=== PATIENT | female | born 1970 | race Asian ===

== ENCOUNTER 2016-12-13 05:41 | Day surgery (SDC) | payer OTHER ==
[2016-12-13] MEDS ORDERED: ACETAMINOPHEN 1,000 MG/100 ML 100 ML IV ONE ×2 (06:37→07:30)
[2016-12-13] MEDS ORDERED: CELECOXIB 100 MG CAPSULE PO ONE (06:38)
[2016-12-13] MEDS ORDERED: ceFAZolin 2 GM/50 ML 50 ML IV ONE (06:38)
[2016-12-13 06:49] LABS: HCG UR QUAL NEGATIVE
[2016-12-13] MEDS ORDERED: LACTATED RINGERS 1,000 ML IV ONE ×2 (07:15→10:00)
[2016-12-13] MEDS ORDERED: ROPIVACAINE 0.5% PF 20 ML AMPULE EP ONE (07:30)
[2016-12-13] MEDS ORDERED: DEXAMETHASONE 4 MG/ML VIAL IVP ONE (07:30)
[2016-12-13] MEDS ORDERED: ONDANSETRON 4 MG/2 ML VIAL IVP ONE (07:30)
[2016-12-13] MEDS ORDERED: LIDOCAINE-MPF 2% 5 ML VIAL IM ONE (07:30)
[2016-12-13] MEDS ORDERED: ROCURONIUM 50 MG/5 ML VIAL IVP ONE (07:30)
[2016-12-13] MEDS ORDERED: PROPOFOL 200 MG/20 ML VIAL IVP ONE (07:30)
[2016-12-13] MEDS ORDERED: MIDAZOLAM 2 MG/2 ML VIAL IVP ONE (07:30)
[2016-12-13] MEDS ORDERED: ePHEDrine 50 MG/ML AMP IVP ONE (07:30)
[2016-12-13] MEDS ORDERED: fentaNYL 100 MCG/2 ML VIAL IVP ONE (07:30)
[2016-12-13] MEDS ORDERED: BUPIVACAINE 0.5% PF 30 ML VIAL INFIL ONE ×2 (08:56)
--- NOTE | 2016-12-13 12:51 | XRAY Report ---
LEFT HUMERUS: 12/13/2016 HISTORY: Postoperative check. COMPARISON: None. FINDINGS: Two views of the left shoulder show subcutaneous air and soft tissue swelling superior to the AC articulation. The glenohumeral and acromioclavicular joints appear anatomically aligned. The distal tip of the acromion is not well seen and the included portions of the left lung are intact. No radiopaque foreign body identified. IMPRESSION: SUBCUTANEOUS AIR AND SOFT TISSUE SWELLING LEFT SHOULDER CONSISTENT WITH RECENT SURGERY. :9 JOB #: [id number] EXT JOB #:[id number]
[2016-12-13 13:17] VITALS: BP 132/65
--- NOTE | 2016-12-16 08:52 | OPERATIVE REPORT ---
DATE OF SURGERY: 12/13/2016 00:00:00 [facility] PREOPERATIVE DIAGNOSES 1. Left shoulder superior labrum anterior to posterior tear. 2. Left shoulder long head biceps tendinopathy. 3. Left shoulder subacromial bursitis. 4. Left shoulder acromioclavicular osteoarthritis. POSTOPERATIVE DIAGNOSES 1. Left shoulder superior labrum anterior to posterior tear. 2. Left shoulder long head biceps tendinopathy. 3. Left shoulder subacromial bursitis. 4. Left shoulder acromioclavicular osteoarthritis. NAME OF PROCEDURE 1. Left shoulder arthroscopy with superior labrum anterior to posterior debridement. 2. Left shoulder arthroscopic subacromial decompression. 3. Left shoulder open biceps tenodesis. 4. Left shoulder open distal clavicle excision. PRIMARY SURGEON: Brandee Webb MD SORTING COWS WORKER SURGEON: Louis Alcocer MD ANESTHESIA/PROVIDER: Darryl James CRNA CIRCULATING NURSE: Tawnya Hernandez RN, CNOR LINE DRIVER 1. Dolly Abraham, CLIENT MANAGER 2. Amparo Casey RN, BSN ANESTHESIA: General via endotracheal tube. IV FLUIDS: 800 mL lactated Ringer's. ESTIMATED BLOOD LOSS: 100 mL. ANTIBIOTICS: 2 grams Ancef IV. TOURNIQUET: None. IMPLANTS: Arthrex 6.25 x 15 mm BioTenodesis screw. SPECIMENS: None. COMPLICATIONS: None. INDICATIONS: This is a 46-year-old female with shoulder pain that began approximately 1 year ago. The patient continued to have pain despite physical therapy, activity modification, NSAIDs, and corticosteroid injections. Treatment options to include risks, benefits, indications, and expectations were discussed with the patient. Risks of surgery to include, but not limited to infection, bleeding, damage to neurovascular structures, need for additional surgery, persistent or worsened pain, tenodesis failure, decreased range of motion or stiffness, iatrogenic chondromalacia, iatrogenic fracture, deep vein thrombosis, pulmonary embolism, loss of limb, and loss of life were discussed with the patient. All questions were answered. The patient elected to proceed with surgery and informed consent was obtained. DESCRIPTION OF PROCEDURE: The patient was met in the preoperative hold area on the morning of surgery, where we confirmed that we had the correct patient, planned to do the correct procedure, had the correct extremity, which was the left upper extremity identified. Prior to the patient receiving any medications the operative extremity was initialed by the surgeon. The patient was then under light sedation, had a left interscalene nerve block performed by Anesthesia. The patient was then brought back to the operating room in stable condition and placed supine on the operating room table. All bony prominences were well padded, and sequential compression devices were placed on the bilateral lower extremities. General anesthesia was then induced and an endotracheal tube was placed. The patient was then placed into the beach chair position, again ensuring that all bony prominences remained well padded and that she remained in anatomic position. The left upper extremity was then examined under anesthesia and was noted to have forward flexion to 180 degrees, and to have abduction to 170 degrees although her shoulder was very tight in trying to obtain this abduction. She had negative anterior and posterior shift testing. The left upper extremity was then prepped and draped in the usual sterile fashion. After final draping, an additional ChloraPrep was utilized on the operative site. We began by insufflating the shoulder with 30 mL of sterile arthroscopy fluid utilizing an 18-gauge needle through the planned posterior portal site. We then sharply incised the skin with an 11 blade then placed the camera cannula with a blunt trocar into the glenohumeral joint through the posterior incision. We then began our exam and by looking at the biceps tendon, which was slightly flattened in appearance but overall without significant findings. There was significant fraying consistent with a type 1 degenerative tear over the SLAP region that extended posteriorly to the 1 o'clock position. There was some synovitis about the shoulder, but the remainder of the labrum was intact. The rotator cuff was intact. There was mild diffuse chondromalacia of the humeral head but no significant lesions of either the humeral head or the glenoid. After completing our diagnostic arthroscopy we inserted a biter and detached the long head of the biceps tendon from the labrum. We then inserted a sucker shaver and debrided the stump of the long head of the biceps as well as the SLAP tear. We then removed the arthroscopic equipment from the glenohumeral joint. We then placed the camera cannula with the blunt trocar into the subacromial space and then inserted the camera. Immediately on entering the subacromial space a significant amount of bursitis was encountered. We then made an incision on the lateral shoulder at midline along the acromion after localizing appropriate placement with an 18-gauge needle. We then passed a switching stick into the subacromial space through this incision, and then placed a cannula over this. We then debrided the subacromial space alternating between a sucker shaver and the wand. It should be noted that the patient had a significant amount of bleeding throughout the course of the subacromial decompression, making visualization very difficult. We were able, however, to fully debride the underside of the acromion and the clavicle of any bursa. We ensured that we had reached the anterior lateral corner of the subacromial space as well as the acromioclavicular joint. We then removed all arthroscopic equipment. We then turned our attention to the open biceps tenodesis and made an incision in line with the arm over the bicipital groove with 1 cm above the inferior border of the pectoralis tendon and 2 cm below this border. After sharply incising the skin we utilized electrocautery to dissect through the subcuticular layer. We then identified the fascia overlying the muscles and split this utilizing Metzenbaum scissors. We then bluntly dissected to the bicipital groove and found the long head of the biceps tendon within the groove. We then removed this utilizing a finger. We then inspected the tendon, which was notable for tenosynovitis. We then utilized a #2 FiberLoop suture to whipstitch from the musculotendinous junction to 2 cm proximal to this. We then truncated the tendon after this point. We then localized the point in the bicipital groove approximately 1 cm proximal to the inferior border of the pectoralis tendon and then marked this with the Bovie. We then placed a guide pin through the anterior cortex of the humerus at this site We then measured the diameter of the biceps tendon to be approximately 5 mm. Decision was then made to place a 6.25 x 15 mm biceps tenodesis screw. So we then drilled over the guide pin with a 6 mm drill. We then tapped the hole with a 6.25 mm tap. We then took one end of the previously placed FiberLoop suture in the biceps tendon and passed this through the tenodesis screw. We then inserted the screw into the humerus and then tied the FiberLoop that was going through the screw to the other FiberLoop suture. We then pulled on these and ensured that we had good fixation in the humerus as well as extended the elbow and confirmed that we could fully extend the elbow. We then cut the remainder of the FiberLoop suture. We then thoroughly irrigated this wound. We then turned our attention to the open distal clavicle excision. We made a saber incision directly over the acromioclavicular joint. After sharply incising the skin, we utilized electrocautery to dissect down to the fascial layer. We then utilized the Bovie to cut through the fascial layer in line with the clavicle. We then elevated this up to the edges of the clavicle and placed Hohmanns around the clavicle. We then identified the disk in the acromioclavicular joint and removed this utilizing a rongeur. We then removed the distal 7 mm of the distal clavicle. There was a small lip on the inferior aspect so a power rasp was then utilized to smooth this. The patient then began to have bleeding from underneath the clavicle. Therefore, the wound was packed. We then turned our attention to closing the remaining wounds utilizing 2-0 Vicryl in the subcuticular layer and running 3-0 Monocryl buried in the skin. After finishing closing all the other incisions the distal clavicle excision bleeding had tamponaded. We then thoroughly irrigated out the distal clavicle excision and then closed the fascia utilizing 0 Vicryl, in the subcuticular layer utilizing 2-0 Vicryl, and the skin utilizing 3-0 Monocryl in a buried fashion. Then 9 mL of 0.5% Marcaine without epinephrine was then injected about the biceps tenodesis incision for postoperative analgesia. The wounds were then dressed with sterile Xeroform, plain gauze, an abdominal pad, and Medipore tape. All sponge counts and needle counts were correct at the conclusion of the case. The patient was awakened from general anesthesia without complication and taken to the PACU in stable condition. POSTOPERATIVE PLAN: The patient will be in a sling for the first 6 weeks postoperatively. She is to avoid any active biceps use. I will see the patient back in 2 weeks for a wound check. At that time will also initiate physical therapy. Report edited and signed 12/17/2016 by Brandee Webb MD. JOB #: [id number] [id number] JOB #:[id number]
== END 2016-12-13 05:42 | disposition home or self-care (01) ==
LOC: SDS 05:41
PROVIDERS: ATTEND Orthopaedic Surgery
PROC: 0RNK4ZZ Release Left Shoulder Joint, Percutaneous Endoscopic Approach (ICD-10-PCS; 2016-12-13)
PROC: 0LS40ZZ Reposition Left Upper Arm Tendon, Open Approach (ICD-10-PCS; 2016-12-13)
PROC: 0RHK04Z Insertion of Internal Fixation Device into Left Shoulder Joint, Open Approach (ICD-10-PCS; 2016-12-13)
PROC: 0PBB0ZZ Excision of Left Clavicle, Open Approach (ICD-10-PCS; 2016-12-13)
PROC: 0RBK4ZZ Excision of Left Shoulder Joint, Percutaneous Endoscopic Approach (ICD-10-PCS; principal; 2016-12-13 07:30)
DX: S43.432A Superior glenoid labrum lesion of left shoulder, initial encounter (principal); M75.22 Bicipital tendinitis, left shoulder; M75.52 Bursitis of left shoulder; M19.012 Primary osteoarthritis, left shoulder; E66.01 Morbid (severe) obesity due to excess calories
CPT/HCPCS: 23120; 23430; 29823; 29826; 73060; 81025; A9270; C1713; J0131; J0690; J7120